=== PATIENT | male | born 1965 | race Hispanic/Latino ===

== ENCOUNTER 2021-09-30 00:18 | Emergency (ER) | payer OTHER, MEDICARE ==
[~2021-09-30] VITALS: Ht 182.9 cm; Wt 140.6 kg
[2021-09-30] MEDS ORDERED: MORPHINE 4 MG SYG IVP ONE (05:00)
[2021-09-30] MEDS ORDERED: ORPHENADRINE CITRATE 30 MG/ML ML IVP ONE (05:00)
[2021-09-30 05:32] LABS: APPEARANCE,URINE CLEAR (CLEAR); BILIRUBIN,URINE NEGATIVE (NEGATIVE); COLOR,URINE YELLOW (YELLOW); GLUCOSE, URINE (UA) >=1000 mg/dL (NEGATIVE); KETONES,URINE 5 mg/dL (NEGATIVE); LEUKOCYTE ESTERASE ,URINE NEGATIVE (NEGATIVE); NITRATE,URINE NEGATIVE (NEGATIVE); OCCULT BLOOD,URINE NEGATIVE (NEGATIVE); PROTEIN,URINE NEGATIVE (NEGATIVE)
[2021-09-30 05:43] LABS: BACTERIA,URINE None Seen /HPF (None Seen); RBC,URINE None Seen /HPF (0-1); SQUAMOUS EPITHELIAL CELL,UR Rare /HPF (0-2); WBC,URINE None Seen /HPF (0-1); YEAST,URINE BUDDING None Seen /HPF (None Seen)
[2021-09-30 07:20] VITALS: BP 110/51
[2021-09-30 07:47] LABS: BASOPHILS % (AUTO) 0.5 % (0.0-5.0); EOSINOPHILS % (AUTO) 2.8 % (0.0-8.0); HEMATOCRIT 45.3 % (42-54); LYMPHOCYTES % (AUTO) 25.5 % (21.0-51.0); MEAN CORPUSCULAR HEMOGLOBIN 28.3 pg (27.0-33.0); MEAN CORPUSCULAR HGB CONC 33.6 g/dL (32.0-36.0); MEAN CORPUSCULAR VOLUME 84.4 fL (79-99); NEUTROPHILS % (AUTO) 61.7 % (40.0-77.0); PLATELET COUNT (AUTO) 213 K/uL (130-400); RED BLOOD CELL COUNT(AUTO) 5.37 MIL/uL (4.50-6.20); RED CELL DISTRIBUTION WIDTH 13.1 % (11.0-15.5); WHITE BLOOD COUNT (AUTO) 8.9 K/uL (4.8-10.8)
[2021-09-30 08:04] LABS: CREATININE 0.9 mg/dL (0.5-1.5); POTASSIUM 3.7 mmol/L (3.5-5.1)
[2021-09-30 08:09] LABS: ALBUMIN 2.8 g/dL (3.5-5.0); BILIRUBIN,TOTAL 0.5 mg/dL (0.2-1.0); TOTAL PROTEIN, SERUM 6.7 g/dL (6.0-8.3)
[2021-09-30] MEDS ORDERED: CYCL-309 PO (08:28)
[2021-09-30] MEDS ORDERED: IBUP-2077 PO (08:28)
[2021-09-30] MEDS ORDERED: KETOROLAC 30MG VIAL (30MG/ML) IVP ONE (08:30)
== END 2021-09-30 09:03 | disposition home or self-care (01) ==
LOC: EDH 00:18
DX: G89.29 Other chronic pain (principal); M54.50 Low back pain, unspecified; M54.16 Radiculopathy, lumbar region; E11.9 Type 2 diabetes mellitus without complications; I10 Essential (primary) hypertension; I25.2 Old myocardial infarction
CPT/HCPCS: 36415; 80053; 81001; 85025; 96374; 96375; 99285; J1885; J2270; J2360

== ENCOUNTER → 2024-08-12 | Outpatient (CLI) | payer OTHER, MEDICAID ==
[~2024-08-12] MED LIST: CYCL-309 PO; IBUP-2077 PO
--- NOTE | 2024-08-12 12:07 | HMCIMG ---
US SOFT TISSUE GROIN REASON: UNILATERAL INGUINAL HERNIA. COMPARISON: None TECHNIQUE: Right inguinal ultrasound study was performed. FINDINGS: There is possible right inguinal hernia with fat content measuring 2.2 x 3 cm. IMPRESSION: Possible right inguinal hernia with fat content.
== END | disposition home or self-care (01) ==
LOC: RAH 10:35
PROVIDERS: ATTEND Family Medicine
DX: K40.90 Unilateral inguinal hernia, without obstruction or gangrene, not specified as recurrent (principal)
CPT/HCPCS: 76882